=== PATIENT | male | born 1950 | race Asian ===

== ENCOUNTER 2022-08-17 11:45 | Outpatient (CLI) | payer BC ==
[~2022-08-17] VITALS: Ht 170.2 cm; Wt 73.9 kg
[2022-08-17 12:41] LABS: ABG BASE EXCESS 0.3 mmol/L (-2.0-2.0); ABG HCO3 24.8 mmol/L (22.0-26.0); ABG OXYGEN SATURATION 95.8 % (94-97); ABG PCO2 (T) 39.7 mmHg (35.0-48.0); ABG PO2 (T) 77.9 mmHg (75.0-100.0); ALLEN'S TEST POSITIVE; FCOHb 0.4 % (0.0-3.9); FMetHb 0.1 % (0.0-1.5); FO2Hb 95.3 % (94-97); TOTAL HEMOGLOBIN 16.4 G/dl (14.0-17.9)
[2022-08-17] MEDS ORDERED: albuterol 2.5 MG/3 ML nebule NEB ONE (13:10)
== END 2022-08-17 23:59 | disposition home or self-care (01) ==
LOC: CARD DIAG 11:45
PROVIDERS: ATTEND Thoracic Surgery (Cardiothoracic Vascular Surgery)
DX: R94.2 Abnormal results of pulmonary function studies (principal); I34.81 Nonrheumatic mitral (valve) annulus calcification; R06.02 Shortness of breath; Z95.4 Presence of other heart-valve replacement
CPT/HCPCS: 36600; 82803; 85018; 93306; 94060; 94727; 94729; 94760